=== PATIENT | male | born 1960 | race Caucasian/White ===

== ENCOUNTER 2025-05-22 14:50 | Emergency (ER) | payer BC, MEDICAID ==
[~2025-05-22 14:50] MED LIST: ACIPHEX; AMLO10TA80 MT; AMOX1TAB16 MT; ARIP15TA2; ASPI-1497; ATRIPLA; BUPR100T13 MT; BUPR150T; DOCU-138; DOCU-422 PO; DOLU1TAB2 PO; HYDR25TA; IBUP-1455 PO; LISI40TA21; LORA10TA7; LOVAZA; NICO-645 TP; PANT20TA17 PO; PRAV40TA58 MT; PROP10DR4 EACHEYE; SULF1TAB48 MT; TRAM50TA3 PO
[2025-05-22 16:50] LABS: BASOPHILS % 1.0 % (0.0-2.0); EOSINOPHILS % 7.8 % (0.0-5.0); HEMATOCRIT. 38.8 % (42.0-52.0); HEMOGLOBIN. 12.8 g/dL (14.0-18.0); LYMPHOCYTES % 18.6 % (20.0-50.0); MEAN PLATELET VOLUME 7.4 fl (7.4-10.4); MONOCYTES % 9.6 % (2.0-8.0); NEUTROPHILS % 63.0 % (40.0-76.0); PLATELET 357 x1000/uL (130-400); RED BLOOD CELL COUNT 4.22 mill/uL (4.7-6.1); RED CELL DISTRIBUTION WIDTH 14.2 % (11.6-14.6)
[2025-05-22 17:01] LABS: CREATININE 1.0 mg/dL (0.6-1.3)
[2025-05-22 17:02] LABS: UREA NITROGEN BLOOD 16 mg/dL (9-23)
[2025-05-22] MEDS ORDERED: PERM60CR20 TP (17:06)
[2025-05-22] MEDS ORDERED: LISI40TA21 PO (17:29)
[2025-05-22] MEDS ORDERED: FLUT9.9S BOTHNSTRLS (17:29)
[2025-05-22] MEDS ORDERED: PRAV40TA58 MT (17:29)
[2025-05-22 17:30] VITALS: BP 143/91; PULSE 80; RESP 16; O2SAT 100
== END 2025-05-22 17:40 | disposition home or self-care (01) ==
LOC: ER 14:50
DX: K40.30 Unilateral inguinal hernia, with obstruction, without gangrene, not specified as recurrent (principal); R21 Rash and other nonspecific skin eruption; I10 Essential (primary) hypertension; Z79.899 Other long term (current) drug therapy; Z98.890 Other specified postprocedural states; Z88.8 Allergy status to other drugs, medicaments and biological substances; Z76.0 Encounter for issue of repeat prescription
CPT/HCPCS: 36415; 74176; 80048; 85025; 99284

== ENCOUNTER 2025-05-27 20:46 | Inpatient (IN) | payer MEDICAID ==
[~2025-05-27] VITALS: Ht 190.5 cm; Wt 74.8 kg
[~2025-05-27 20:46] MED LIST changes: +FLUT9.9S BOTHNSTRLS; -LISI40TA21; +LISI40TA21 PO; +PERM60CR20 TP
[2025-05-27 21:30] VITALS: O2SAT 98
[2025-05-28 00:14] LABS: BASOPHILS % 1.2 % (0.0-2.0); EOSINOPHILS % 9.0 % (0.0-5.0); HEMATOCRIT. 37.1 % (42.0-52.0); HEMOGLOBIN. 12.2 g/dL (14.0-18.0); LYMPHOCYTES % 26.7 % (20.0-50.0); MEAN PLATELET VOLUME 7.8 fl (7.4-10.4); MONOCYTES % 12.3 % (2.0-8.0); NEUTROPHILS % 50.8 % (40.0-76.0); PLATELET 289 x1000/uL (130-400); RED BLOOD CELL COUNT 4.03 mill/uL (4.7-6.1); RED CELL DISTRIBUTION WIDTH 14.8 % (11.6-14.6)
[2025-05-28 00:22] LABS: CREATININE 1.1 mg/dL (0.6-1.3); UREA NITROGEN BLOOD 20 mg/dL (9-23)
[2025-05-28] MEDS: KETOROLAC 15MG/ML VIAL IM ONE (00:23)
[2025-05-28 00:24] LABS: ASPARTATE AMINOTRANSFERASE 20 IU/L (<34); BILIRUBIN DIRECT < 0.1 mg/dL (<=3.0); BILIRUBIN TOTAL 0.3 mg/dL (0.1-1.0); PROTEIN TOTAL 7.4 g/dL (6.0-8.3)
[2025-05-28 02:26] LABS: CLARITY URINE CLEAR (CLEAR); COLOR URINE DARK YELLOW (YELLOW); GLUCOSE URINE NEGATIVE (NEGATIVE); KETONES URINE TRACE (NEGATIVE); LEUKOCYTE ESTERASE URINE NEGATIVE (NEGATIVE); NITRITE URINE NEGATIVE (NEGATIVE); OCCULT BLOOD URINE NEGATIVE (NEGATIVE); PH URINE 5.0 (4.5-8.0); PROTEIN URINE TRACE (NEGATIVE); SPECIFIC GRAVITY URINE 1.029 (1.005-1.030); UROBILINOGEN URINE 1.0 E.U./dL (0.2-1.0)
[2025-05-28 03:06] LABS: BACTERIA URINE NONE SEEN; RBC URINE 0-2 /hpf (0-2); SQUAMOUS EPITHELIAL CELL URINE FEW /lpf (RARE/1+); WBC URINE 0-2 /hpf (0-2)
[2025-05-28 03:07] LABS: HYALINE CASTS URINE 0-5 /lpf
[2025-05-28] MEDS ORDERED: MORPHINE SULFATE 4 MG/ML INJ (FOR IV/IM USE) IV PRN (05:15)
[2025-05-28] MEDS ORDERED: ONDANSETRON HCL 4MG/2ML INJ IV PRN (05:15)
[2025-05-28] MEDS ORDERED: HYDRALAZINE 10 MG in SODIUM CHLORIDE 0.9% 49.5 ML IV PRN (05:15)
[2025-05-28] MEDS: DEXT 5%/0.45% NACL KCL 20MEQ/L 1,000 ML IV SCH (06:18)
[2025-05-28] MEDS: LACTULOSE 20G/30ML UDC PO NR (13:23)
[2025-05-28 20:00] VITALS: BP 118/68; PULSE 63; RESP 18; TEMP 36.3; O2SAT 97
[2025-05-29] VITALS: BP 152/86; PULSE 67; RESP 19; TEMP 36.1; O2SAT 97
[2025-05-29 04:00] VITALS: BP 158/80; PULSE 69; RESP 20; TEMP 36.1; O2SAT 99
[2025-05-29] MEDS ORDERED: ACETAMINOPHEN 325MG TABLET PO PRN (16:15)
[2025-05-30 13:15] VITALS: RESP 19
[2025-06-01 13:08] LABS: HIV 1 ABS Reactive (Non Reactive); HIV 2 ABS Non Reactive (Non Reactive); HIV SCREEN 4G Preliminary Reactive (Non Reactive)
== END 2025-05-30 14:24 | disposition home or self-care (01) | DRG 395 ==
LOC: ER 20:46 → EDBEDREQDT 05-28 01:40 → EDBEDREQTM 05-28 01:40 → EDBEDREQ 05-28 01:40 → ENRESERV 05-28 02:19 → 7EST 05-28 03:30
PROVIDERS: ADMIT Internal Medicine; ATTEND Internal Medicine
DX: K40.90 Unilateral inguinal hernia, without obstruction or gangrene, not specified as recurrent (principal); I10 Essential (primary) hypertension; Z79.899 Other long term (current) drug therapy
CPT/HCPCS: 36415; 74176; 80048; 80076; 81003; 85025; 86701; 86702; 87389; 93005; 96372; 99285; A4606; J1885

== ENCOUNTER 2025-06-04 13:16 | Emergency (ER) | payer MEDICAID ==
[~2025-06-04] VITALS: Ht 185.4 cm; Wt 82.0 kg
[~2025-06-04 13:16] MED LIST changes: -AMOX1TAB16 MT; -SULF1TAB48 MT
[2025-06-04 13:17] VITALS: O2SAT 98
[2025-06-04 13:43] VITALS: BP 140/80; PULSE 91; RESP 16; TEMP 36.8; O2SAT 99
[2025-06-04 14:56] LABS: BASOPHILS % 1.4 % (0.0-2.0); EOSINOPHILS % 11.4 % (0.0-5.0); HEMATOCRIT. 36.9 % (42.0-52.0); HEMOGLOBIN. 11.9 g/dL (14.0-18.0); LYMPHOCYTES % 21.5 % (20.0-50.0); MEAN PLATELET VOLUME 8.2 fl (7.4-10.4); MONOCYTES % 11.5 % (2.0-8.0); NEUTROPHILS % 54.2 % (40.0-76.0); PLATELET 257 x1000/uL (130-400); RED BLOOD CELL COUNT 4.02 mill/uL (4.7-6.1); RED CELL DISTRIBUTION WIDTH 14.5 % (11.6-14.6)
[2025-06-04 15:04] LABS: CREATININE 0.8 mg/dL (0.6-1.3); UREA NITROGEN BLOOD 18 mg/dL (9-23)
[2025-06-04 16:17] LABS: CLARITY URINE CLEAR (CLEAR); GLUCOSE URINE NEGATIVE (NEGATIVE); KETONES URINE NEGATIVE (NEGATIVE); LEUKOCYTE ESTERASE URINE NEGATIVE (NEGATIVE); NITRITE URINE NEGATIVE (NEGATIVE); OCCULT BLOOD URINE TRACE (NEGATIVE); PH URINE 5.0 (4.5-8.0); PROTEIN URINE NEGATIVE (NEGATIVE); SPECIFIC GRAVITY URINE 1.009 (1.005-1.030); UROBILINOGEN URINE 0.2 E.U./dL (0.2-1.0)
[2025-06-04] MEDS: KETOROLAC 30MG/ML VIAL IM ONE (16:42)
[2025-06-04 16:50] LABS: COLOR URINE STRAW (YELLOW)
[2025-06-04 17:01] LABS: BACTERIA URINE NONE SEEN; RBC URINE 0-2 /hpf (0-2); SQUAMOUS EPITHELIAL CELL URINE RARE /lpf (RARE/1+); WBC URINE NONE SEEN /hpf (0-2)
== END 2025-06-04 18:32 | disposition home or self-care (01) ==
LOC: ER 13:16
DX: K40.90 Unilateral inguinal hernia, without obstruction or gangrene, not specified as recurrent (principal); I10 Essential (primary) hypertension; Z59.00 Homelessness unspecified; Z76.0 Encounter for issue of repeat prescription; Z79.82 Long term (current) use of aspirin; Z79.899 Other long term (current) drug therapy; Z88.8 Allergy status to other drugs, medicaments and biological substances
CPT/HCPCS: 99285; 74176; 80048; 81003; 85025; 36415; 96372; J1885

== ENCOUNTER 2025-06-13 08:22 | Emergency (ER) | payer MEDICAID ==
[~2025-06-13] VITALS: Ht 180.3 cm; Wt 82.0 kg
[2025-06-13 11:25] VITALS: BP 154/88; PULSE 87; RESP 16; TEMP 36.9; O2SAT 98
== END 2025-06-13 11:26 | disposition home or self-care (01) ==
LOC: ER 08:22
DX: I10 Essential (primary) hypertension (principal); Z00.8 Encounter for other general examination; Z59.00 Homelessness unspecified; Z79.624 Long term (current) use of inhibitors of nucleotide synthesis; Z79.82 Long term (current) use of aspirin; Z79.899 Other long term (current) drug therapy; Z88.8 Allergy status to other drugs, medicaments and biological substances
CPT/HCPCS: 99282